=== PATIENT | male | born 1990 | race Caucasian/White ===

== ENCOUNTER 2022-12-19 18:19 | Emergency (ER) | payer OTHER, SELFPAY ==
[2022-12-19 18:29] VITALS: BP 158/84; PULSE 90; RESP 18; TEMP 36.9; O2SAT 99; BMI 33.5
[2022-12-19 19:37] VITALS: BP 155/96; PULSE 81; RESP 18; O2SAT 99
--- NOTE | 2022-12-19 19:39 | ED.ABDPAIN1 ---
HPI - Abdominal Pain General Chief Complaint: Abdominal Pain Stated Complaint: SEVERE-ABDOMINAL PAIN Time Seen by Provider: 12/19/22 19:35 Source: patient Mode of arrival: walk-in Limitations: no limitations History of Present Illness HPI narrative: abdominal pain that occurs when he eats. No pain if not eating. Pain occurs while eating. No associated vomiting or diarrhea. ongoing for the past week. states after he eats he has abdominal pain as if he had eaten razor blades. elicited complaint: Reports abdominal pain Related Data Allergies Allergy/AdvReac Type Severity Reaction Status Date / Time No Known Drug Allergies Allergy Verified 12/19/22 18:28 Review of Systems ROS Status of ROS 10 or more systems reviewed and unremarkable except as noted in history and below Exam Constitutional Vital Signs, click to edit/add: Last Vital Signs Temp 98.4 F 12/19/22 18:29 Pulse 81 12/19/22 19:37 Resp 16 12/19/22 21:37 BP 138/88 12/19/22 21:37 Pulse Ox 97 12/19/22 21:37 O2 Del Method Room Air 12/19/22 21:37 Common normals: no apparent distress, average body habitus, oriented x3, no limitations, healthy appearing and alert [facility] Common normals: normocephalic and head/scalp atraumatic Eye Common normals: PERRL, EOMs intact bilaterally and conjunctivae normal Respiratory Common normals: normal respiratory effort, no retractions, no use of accessory muscles and clear to auscultation bilaterally GI Common normals: Normal to inspection, nondistended, normoactive bowel sounds present, soft to palpation, non-tender and no hepatosplenomegaly Extremity Common normals: normal to inspection and full ROM Neuro Common normals: oriented x3, CN's II-XII intact bilaterally, moves all extremities, no focal motor deficits and no sensory deficits noted Psych Appearance: grossly normal Course Vital Signs Vital signs: Vital Signs Temperature 98.4 F 12/19/22 18:29 Pulse Rate 90 12/19/22 18:29 Respiratory Rate 18 12/19/22 18:29 Blood Pressure 158/84 H 12/19/22 18:29 Pulse Oximetry 99 12/19/22 18:29 Oxygen Delivery Method Room Air 12/19/22 18:29 Temperature 98.4 F 12/19/22 18:29 Pulse Rate 81 12/19/22 19:37 Respiratory Rate 16 12/19/22 21:37 Blood Pressure 138/88 12/19/22 21:37 Pulse Oximetry 97 12/19/22 21:37 Oxygen Delivery Method Room Air 12/19/22 21:37 MDM - Abdominal Pain MDM Narrative Medical decision making narrative: patient presents complaining of abdominal pain for the past week. Triggered by eating. no vomiting or diarrhea. workup in the department neg. CT without acute findings and no vascular concerns. patient treated with GI cocktail and afterwards was able to eat. Did have some discomfort but not as bad as he had been experiencing at home. Described as mild. Will plan discharge home with Steffi to use and have him follow up with his doctor to continue the workup Lab Data Labs: Lab Results 12/19/22 12/19/22 Range/Units 19:40 19:51 WBC 9.5 (4.0-11.0) 10^3/uL RBC 4.62 L (4.70-6.10) 10^6/uL Hgb 14.0 (14.0-18.0) g/dL Hct 40.2 L (42.0-54.0) % MCV 87.0 (80.0-94.0) fL MCH 30.3 (25.9-34.0) pg MCHC 34.8 (29.9-35.2) g/dL RDW 12.9 (11.0-15.0) % Plt Count 350 (150-450) 10^3/uL MPV 8.9 L (9.5-13.5) fL Neut % (Auto) 57.5 (43.0-75.0) % Lymph % (Auto) 26.4 (20.5-60.0) % [place] % (Auto) 5.7 (1.7-12.0) % Eos % (Auto) 9.1 H (0.9-7.0) % Baso % (Auto) 0.7 (0.2-2.0) % Neut # (Auto) 5.4 (1.4-6.5) 10^3/uL Lymph # (Auto) 2.5 (1.2-3.8) 10^3/uL [place] # (Auto) 0.5 (0.3-0.8) 10^3/uL Eos # (Auto) 0.9 H (0.0-0.7) 10^3/uL Baso # (Auto) 0.1 (0.0-0.1) 10^3/uL Abs Immat Gran (auto) 0.06 H (0.00-0.03) 10^3/uL Imm/Tot Granulo (auto) 0.6 H (0.0-0.5) % Sodium 138 (136-145) mmol/L Potassium 3.6 (3.5-5.1) mmol/L Chloride 104 (98-107) mmol/L Carbon Dioxide 24.2 (21.0-32.0) mmol/L Anion Gap 13.4 BUN 5.0 L (7.0-18.0) mg/dL Creatinine 0.82 (0.70-1.30) mg/dL Est GFR ( Amer) >60 (>=60) Est GFR (Non-Af Amer) >60 (>=60) BUN/Creatinine Ratio 6.1 Glucose 91 (74-106) mg/dL Lactate 0.9 (0.4-2.0) mmol/L Calcium 9.0 (8.5-10.1) mg/dL Total Bilirubin 0.7 (0.2-1.0) mg/dL AST 34 (15-37) U/L ALT 56 (16-63) U/L Alkaline Phosphatase 67 (46-116) U/L Total Protein 8.5 H (6.4-8.2) g/dL Albumin 4.6 (3.4-5.0) g/dL Globulin 3.9 g/dL Albumin/Globulin Ratio 1.2 Urine Color Lt. yellow (YELLOW) Urine Clarity Clear (CLEAR) Urine pH 6.0 (5.0-9.0) Ur Specific [place] <=1.005 A (1.005-1.025) Urine Protein Negative (NEG/TRACE) mg/dL Urine Glucose (UA) Negative (NEGATIVE) mg/dL Urine Ketones Negative (NEGATIVE) mg/dL Urine Occult Blood Negative (NEGATIVE) Urine Nitrite Negative (NEGATIVE) Urine Bilirubin Negative (NEGATIVE) Urine Urobilinogen 0.2 (0.2-1.0) EU/dL Ur Leukocyte Esterase Negative (NEGATIVE) Discharge Plan Discharge Chief Complaint: Abdominal Pain Clinical Impression: Abdominal pain Patient Disposition: Home, Self-Care Instructions: Abdominal Pain (ED) Additional Instructions: follow up with your family doctor or with Dr Spencer later this week for recheck Stand Alone Forms: Portal Instructions Referrals: Physician,Non-Staff, MD [Primary Care Provider] - 1 week
--- NOTE | 2022-12-19 19:43 | CT_ITS ---
[place] [id number] Patient Name: CLEO MCBRIDE MRN: [id number] date: 1990 Sex: M Assigned Patient Location: ER Current Patient Location: Accession/Order Number: [id number] Exam Date: 12/19/2022 19:55 Report Date: 12/19/2022 20:50 At the request of: JONI SHRESTHA Procedure: CT abdomen pelvis w con EXAMINATION: CT ABDOMEN AND PELVIS WITH IV CONTRAST CLINICAL HISTORY: Acute lower abdominal pain TECHNIQUE: CT of the abdomen and pelvis was performed using standard technique, scanning from just above the dome of the diaphragm to the symphysis pubis. All CT scans at this facility use dose modulation, iterative reconstruction, and/or weight based dosing when appropriate to reduce radiation dose to as low as reasonably achievable. Contrast: IV: 98 ml of Omnipaque 300 COMPARISON: None. RESULT: Liver: No mass. Diffuse hepatic steatosis. Biliary: No bile duct dilation. 8mm slightly hyperattenuating lesion at the gallbladder fundus (series 3 image 58), likely a gallbladder polyp. No cholelithiasis. Spleen: No mass. No splenomegaly. Pancreas: No mass or duct dilation. Adrenals: No mass. Kidneys: No mass, calculus or hydronephrosis. GI tract: No dilation or wall thickening. Moderate colonic stool. Appendix is unremarkable. Lymph nodes: Few prominent but nonenlarged by size criteria retroperitoneal nodes. Mesentery/Peritoneum: No ascites or mass. Retroperitoneum: No mass. Vasculature: The celiac axis and SMA are patent. The portal vein and branches, splenic vein, SMV, and hepatic veins are patent. No abdominal aortic aneurysm. Pelvis: No mass, ascites or fluid collection. Urinary bladder is decompressed. Bones/Soft Tissues: No significant finding. Lower thorax: Unremarkable. CT/CT abdomen pelvis w con IMPRESSION: 1. No acute findings in the abdomen and pelvis. 2. Diffuse hepatic steatosis. 3. 8mm slightly hyperattenuating gallbladder fundus lesion, likely a polyp. Recommend further evaluation with right upper quadrant ultrasound. Electronically authenticated by: KYLEE SINGH Date: 12/19/2022 20:50
[2022-12-19] MEDS: 0.9 % SODIUM CHLORIDE 1,000 ML 999 ML IV (19:50)
[2022-12-19 19:58] LABS: Basophils Absolute Auto 0.1 10^3/uL (0.0-0.1); Basophils Percent Auto 0.7 % (0.2-2.0); Eosinophils Absolute Auto 0.9 10^3/uL (0.0-0.7); Eosinophils Percent Auto 9.1 % (0.9-7.0); Hematocrit 40.2 % (42.0-54.0); Immature Granulocytes Abs Auto 0.06 10^3/uL (0.00-0.03); Immature Granulocytes Pct Auto 0.6 % (0.0-0.5); Lymphocytes Absolute Auto 2.5 10^3/uL (1.2-3.8); Lymphocytes Percent Auto 26.4 % (20.5-60.0); Mean Corpuscular HGB Conc 34.8 g/dL (29.9-35.2); Mean Corpuscular Hemoglobin 30.3 pg (25.9-34.0); Mean Platelet Volume 8.9 fL (9.5-13.5); Monocytes Absolute Auto 0.5 10^3/uL (0.3-0.8); Monocytes Percent Auto 5.7 % (1.7-12.0); Neutrophils Absolute Auto 5.4 10^3/uL (1.4-6.5); Neutrophils Percent Auto 57.5 % (43.0-75.0); Platelet Count 350 10^3/uL (150-450); Red Blood Count 4.62 10^6/uL (4.70-6.10); Red Cell Distribution Width 12.9 % (11.0-15.0); White Blood Count 9.5 10^3/uL (4.0-11.0)
[2022-12-19 20:09] LABS: Bilirubin Urine NEGATIVE (NEGATIVE); Blood Urine NEGATIVE (NEGATIVE); Clarity Urine CLEAR (CLEAR); Color Urine LT. YELLOW (YELLOW); Glucose Urine UA NEGATIVE (NEGATIVE); Ketones Urine NEGATIVE (NEGATIVE); Leukocyte Esterase Urine NEGATIVE (NEGATIVE); Nitrite Urine NEGATIVE (NEGATIVE); Protein Urine NEGATIVE (NEG/TRACE); Specific Gravity Urine <=1.005 (1.005-1.025); Urobilinogen Urine 0.2 EU/dL (0.2-1.0)
[2022-12-19 20:10] LABS: Urine Microscopic Indicated NO
[2022-12-19 20:14] LABS: Lactate/Lactic Acid 0.9 mmol/L (0.4-2.0)
[2022-12-19 20:21] LABS: Alanine Aminotransferase 56 U/L (16-63); Albumin Globulin Ratio 1.2; Albumin Level 4.6 g/dL (3.4-5.0); Alkaline Phosphatase 67 U/L (46-116); Anion Gap 13.4; Aspartate Amino Transferase 34 U/L (15-37); BUN Creatinine Ratio 6.1; Bilirubin Total 0.7 mg/dL (0.2-1.0); Carbon Dioxide 24.2 mmol/L (21.0-32.0); Chloride 104 mmol/L (98-107); Estimated GFR (African America >60 (>=60); Estimated GFR (Non-African Ame >60 (>=60); Globulin 3.9 g/dL; Glucose 91 mg/dL (74-106); Potassium 3.6 mmol/L (3.5-5.1); Sodium 138 mmol/L (136-145); Total Protein 8.5 g/dL (6.4-8.2)
[2022-12-19] MEDS: lidocaine HCL 15 ML, MAG HYDROX/ALUMINUM HYD/SIMETH 30 ML, HYOSCYAMINE SULFATE 0.25 MG PO (21:34)
[2022-12-19 21:37] VITALS: BP 138/88; RESP 16; O2SAT 97
[2022-12-19] MEDS: DICYCLOMINE HCL 20 MG/2 ML VIAL IM (22:38)
== END 2022-12-19 22:57 | disposition home or self-care (01) ==
PROVIDERS: Emergency Provider Internal Medicine
DX: R10.9 Unspecified abdominal pain (principal)
CPT/HCPCS: 36415; 74177; 80053; 81003; 83605; 85025; 96360; 96372; 99285; J0500; Q9967

== ENCOUNTER 2022-12-31 07:46 | Outpatient (OUT) | payer OTHER, SELFPAY ==
--- NOTE | 2022-12-31 07:59 | US_ITS ---
The [address] [address] Patient Name: CLEO MCBRIDE MRN: [id number] date: 1990 Sex: M Assigned Patient Location: US Current Patient Location: US Accession/Order Number: [id number] Exam Date: 12/31/2022 08:04 Report Date: 12/31/2022 10:19 At the request of: JOSEFA MELARA Procedure: US right upper quadrant EXAM: US right upper quadrant EXAM DATE: 12/31/2022 6:04 AM MDT COMPARISON: CT abdomen and pelvis 12/19/2022. INDICATION: GALLBLADDER POLYP K82.4 TECHNIQUE: Limited ultrasound of the right upper quadrant of abdomen was performed. Images were reviewed on a separate workstation. FINDINGS: Hepatic parenchyma is diffusely echogenic. A hypoechoic area adjacent to the gallbladder fundus measures 1.1 x 0.9 x 1.0 cm; no associated mass effect. Gallbladder is normally distended. Echogenic, nonmobile intraluminal focus at the gallbladder fundus measures 0.9 x 0.6 x 0.6 cm. No gallbladder wall thickening or pericholecystic fluid noted. Gallbladder wall measures 1.6 mm. Sonographic Avery's sign is absent. No intrahepatic or extrahepatic biliary ductal dilatation noted. CBD measures 2.7 mm. Portal vein is patent with hepatopetal flow. Pancreas is obscured by bowel gas; visualized pancreatic parenchyma is homogeneous. Right kidney measures 12.8 x 5.3 x 5.0 cm. Renal cortex measures 1.2 cm. No hydronephrosis or nephrolithiasis noted. No free fluid noted in the right upper abdomen. US/US right upper quadrant IMPRESSION: 1. Gallbladder wall polyp measures up to 0.9 cm. Recommend follow-up ultrasound in 12 months to evaluate stability. 2. Hepatic steatosis with an area of probable focal fatty sparing adjacent to the gallbladder fossa. 3. No bile duct dilation. Electronically authenticated by: SHARON OGLESBY Date: 12/31/2022 10:19
== END 2022-12-31 07:47 | disposition home or self-care (01) ==
LOC: US 07:47
PROVIDERS: PCP Internal Medicine; Visit Provider Internal Medicine
DX: K82.4 Cholesterolosis of gallbladder (principal)
CPT/HCPCS: 76705